=== PATIENT | female | born 1955 | race Caucasian/White ===

== ENCOUNTER 2018-01-25 17:10 | Emergency (ER) | payer OTHER ==
[2018-01-25 17:33] LABS: BASOPHILS % (AUTO) 0.7 %; EOSINOPHILS # (AUTO) 0.2 10^3/uL (0.0-0.7); EOSINOPHILS % (AUTO) 4.4 %; HGB - HEMOGLOBIN 13.5 g/dL (12.0-16.0); LYMPHOCYTES # (AUTO) 1.1 10^3/uL (1.5-3.5); LYMPHOCYTES % (AUTO) 22.5 %; MEAN CORPUSCULAR HEMOGLOBIN 30.6 pg (27.0-31.0); MEAN CORPUSCULAR HGB CONC 33.1 g/dL (32.0-36.0); MEAN CORPUSCULAR VOLUME 92.3 fL (81.0-99.0); MEAN PLATELET VOLUME 8.9 fL (7.9-10.8); MONOCYTES # (AUTO) 0.6 10^3/uL (0.0-1.0); MONOCYTES % (AUTO) 10.9 %; NEUTROPHILS # (AUTO) 3.1 10^3/uL (1.5-6.6); NEUTROPHILS % (AUTO) 61.5 %; PLT - PLATELET COUNT 172 10^3/uL (130-450); RED BLOOD COUNT 4.43 10^6/uL (4.20-5.40); RED CELL DISTRIBUTION WIDTH 13.1 % (12.0-15.0); WHITE BLOOD COUNT 5.1 x10^3/uL (4.8-10.8)
[2018-01-25 17:46] LABS: ALBUMIN 4.3 g/dL (3.2-5.5); ALBUMIN/GLOBULIN RATIO 1.2 (1.0-2.2); BILIRUBIN,TOTAL 0.5 mg/dL (0.2-1.0); CALCIUM 9.1 mg/dL (8.5-10.3); CREATININE 0.9 mg/dL (0.4-1.0); TOTAL PROTEIN 7.8 g/dL (6.7-8.2)
--- NOTE | 2018-01-25 18:29 | XRAY Report ---
Reason: soa/productive cough, chills. Procedure Date: 01/25/2018 Accession Number: [id number] / [id number] Procedure: XR - Chest 2 View X-Ray CPT Code: 73730 FULL RESULT: EXAM: CHEST RADIOGRAPHY EXAM DATE: 01/25/2018 05:42 PM. CLINICAL HISTORY: SOA/productive cough, chills. COMPARISON: 02/08/2015 1:19 PM. TECHNIQUE: 2 views. FINDINGS: Lungs/Pleura: No focal opacities evident. No pleural effusion. No pneumothorax. Normal volumes. Mediastinum: Heart and mediastinal contours are unremarkable. Other: None. IMPRESSION: Normal 2-view chest radiography. No active disease. RADIA
--- NOTE | 2018-01-25 21:28 | ED Physician Documentation ---
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 cough and soa saw PMD rx MDI and tessalon sx continue to worsen productive cough chest feels tight wheezing friend who is resp tech or nurse heard wheezing no travel no leg swelling Review of Systems Constitutional: denies: Fever, Chills Cardiac: reports: Chest pain / pressure (tightness) Respiratory: reports: Dyspnea, Cough GI: denies: Vomiting, Diarrhea Musculoskeletal: denies: Extremity swelling Endocrine: denies: Easy bruising / bleeding Immunocompromised: denies: Immunocompromised PD PAST MEDICAL HISTORY - Past Medical History Cardiovascular: Hypertension GI: Hiatal hernia, Hepatitis Psych: Depression, Anxiety - Past Surgical History 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 - Present Medications Home Medications: Ambulatory Orders Medication Instructions Recorded Confirmed DULoxetine [Cymbalta] 0 mg PO DAILY 07/18/13 02/08/15 Esomeprazole Magnesium [Nexium] 1 tab PO BID 07/18/13 02/08/15 Ursodiol 0 mg PO BID 07/18/13 02/08/15 hydroCHLOROthiazide 1 tab DAILY 03/14/14 02/08/15 [Hydrochlorothiazide] HYDROcod/ACETAM 5/325 [[place] 5/325] 1 ea PO Q6H PRN #10 tablet 02/08/15 Sucralfate [Carafate] 1 gm PO QID #1 bottle 02/08/15 Azithromycin [Zithromax] 250 mg PO DAILY #4 tablet 01/25/18 guaiFENesin/DEXTROMETHORPHAN 10 ml PO Q6H PRN #120 ml 01/25/18 [Robitussin Dm] predniSONE [Deltasone] 60 mg PO DAILY #5 tablet 01/25/18 - Allergies Allergies/Adverse Reactions: Allergies Allergy/AdvReac Type Severity Reaction Status Date / Time doxycycline [From Vibramycin] Allergy Emesis Verified 01/25/18 17:17 erythromycin base Allergy Emesis Verified 01/25/18 17:17 morphine Allergy Hallucinati Verified 07/18/13 12:35 ons - Social History Does the pt smoke?: No Smoking Status: Never smoker Does the pt drink ETOH?: Yes Does the pt have substance abuse?: No - Immunizations Immunizations are current?: Yes PD ED PE NORMAL - Vitals Vital signs reviewed: Yes - General General: Alert and oriented X 3 - Neck Neck: Supple, no meningeal sign - Cardiac Cardiac: RRR - Respiratory Respiratory: Other (donnell exp wheeze, right lower lung ronchi) - Abdomen Abdomen: Soft, Non tender - Extremities Extremities: Normal ROM s pain, No edema - Neuro Neuro: Alert and oriented X 3 Results - Vitals Vitals: Vital Signs - 24 hr 01/25/18 01/25/18 01/25/18 17:14 21:00 21:56 Temperature 36.9 C Heart Rate 95 85 85 Respiratory 18 20 22 Rate Blood Pressure 163/93 H 159/87 H O2 Saturation 98 98 01/25/18 23:05 Temperature Heart Rate 82 Respiratory 18 Rate Blood Pressure O2 Saturation Oxygen O2 Source Room air - EKG (time done) 1718 Rate: Rate (enter#) (61) Rhythm: NSR [place]: Normal Intervals: Normal DC QRS: Normal - Labs Labs: Laboratory Tests 01/25/18 01/25/18 01/25/18 17:29 17:29 17:29 WBC 5.1 RBC 4.43 Hgb 13.5 Hct 40.9 MCV 92.3 MCH 30.6 MCHC 33.1 RDW 13.1 Plt Count 172 MPV 8.9 Neut # (Auto) 3.1 Lymph # (Auto) 1.1 L [place] # (Auto) 0.6 Eos # (Auto) 0.2 Baso # (Auto) 0.0 Absolute Nucleated RBC 0.00 Nucleated RBC % 0.0 Sodium 137 Potassium 3.4 L Chloride 103 Carbon Dioxide 25 Anion Gap 9.0 BUN 21 H Creatinine 0.9 Estimated GFR (MDRD) 63 L Glucose 120 H Calcium 9.1 Total Bilirubin 0.5 AST 26 ALT 22 Alkaline Phosphatase 58 Troponin I < 0.04 Total Protein 7.8 Albumin 4.3 Globulin 3.5 Albumin/Globulin Ratio 1.2 Lipase 30 - Rads (name of study) CXR Radiology: See rad report (NACPD) PD MEDICAL DECISION MAKING - ED course ED course: chest tightness in setting of productive cough and wheezing - EKG and trop neg after weeks of sx - seems primarily resp not cardiac - do not feel further work up needed CXR neg but on exam focal ronchi c/w pna - will tc and wheezing now depsite MDI - add steroids and neb here before dc pt has take zmax before - her emycin allergy is NV inc wheezing and still tght after one neb but better after steroids started to work and a triple neb will dc Departure - Departure Disposition: 01 Home, Self Care Clinical Impression: Wheezing Pneumonia Qualifiers: Pneumonia type: due to unspecified organism Laterality: right Lung location: lower lobe of lung Qualified Code(s): J18.1 - Lobar pneumonia, unspecified organism Condition: Good Instructions: ED Pneumonia Adult Follow-Up: WENDY WALTERS MD [Primary Care Provider] - (for a recheck later this week) Prescriptions: Azithromycin [Zithromax] 250 mg PO DAILY #4 tablet guaiFENesin/DEXTROMETHORPHAN [Robitussin Dm] 10 ml PO Q6H PRN #120 ml PRN Reason: Cough predniSONE [Deltasone] 60 mg PO DAILY #5 tablet Comments: Your heart checked out fine Your exam does not suggest a blood clot in your lungs Your xray was fine but on exam it sounds like you have a right lower lung pneumonia so I have started antibiotics. Since you are still wheezing despite the inhaler prescribed by your PMD I have added steroids and a medication to loosen the mucous.
[2018-01-25] MEDS ORDERED: AZITHROMYCIN 250 MG TABLET PO STA (21:44)
[2018-01-25] MEDS ORDERED: DEXAMETHASONE 10 MG/ML VIAL PO STA (21:44)
[2018-01-25] MEDS ORDERED: ALBUTEROL NEB 2.5 MG/3 ML INH STA (21:44)
[2018-01-25] MEDS ORDERED: CHERRY SYRUP 10 ML UDC PO ONE (21:48)
[2018-01-25] MEDS ORDERED: LEVALBUTEROL 1.25 MG/3 ML NEB INH STA (22:46)
[2018-01-25 23:27] VITALS: BP 147/81
== END 2018-01-25 23:29 | disposition home or self-care (01) ==
LOC: ED 17:10
DX: J18.9 Pneumonia, unspecified organism (principal); Z88.1 Allergy status to other antibiotic agents; I10 Essential (primary) hypertension
CPT/HCPCS: 36415; 71046; 80053; 83690; 84484; 85025; 93005; 94640; 99283; 99284; A9270

== ENCOUNTER 2018-03-06 12:39 | Outpatient (CLI) | payer OTHER | END 2018-03-06 12:40 | disposition home or self-care (01) | LOC: RT 12:39 | PROVIDERS: ATTEND Family Medicine | DX: R05 Cough (principal); R06.02 Shortness of breath; R06.2 Wheezing | CPT/HCPCS: 94010 ==

== ENCOUNTER 2018-07-24 14:04 | Emergency (ER) | payer OTHER ==
[2018-07-24 14:18] VITALS: BP 141/70
[2018-07-24] MEDS ORDERED: DEXAMETHASONE 10 MG/ML VIAL PO STA (14:27)
[2018-07-24] MEDS ORDERED: CHERRY SYRUP 10 ML UDC PO ONE (14:27)
[2018-07-24] MEDS ORDERED: IBUPROFEN 800 MG TABLET PO STA (14:27)
--- NOTE | 2018-07-24 14:33 | ED Physician Documentation ---
History of Present Illness - Stated complaint Stated Complaint: SORE THROAT - Chief complaint Chief Complaint: Heent - History obtained from History obtained from: Patient - History of Present Illness Timing: How many days ago (2) Pain level max: 8 Pain level now: 8 - Additonal information Additional information: Patient is being treated for strep pharyngitis. She was seen at the [facility] yesterday and was given a "shot of penicillin" in her buttocks for the strep pharyngitis. She states continued pain today. Has not taken anything for pain. No vomiting. No fevers. Nothing makes it better. Worse with swallowing. Review of Systems Ten Systems: 10 systems reviewed and negative Constitutional: denies: Fever, Chills Nose: denies: Rhinorrhea / runny nose, Congestion Respiratory: denies: Wheezing GI: denies: Vomiting Skin: denies: Rash Musculoskeletal: denies: Neck pain, Back pain PD PAST MEDICAL HISTORY - Past Medical History Cardiovascular: Hypertension GI: Hiatal hernia, Hepatitis Psych: Depression, Anxiety - Past Surgical History Past Surgical History: Yes /[employer]: section - Present Medications Home Medications: Ambulatory Orders Medication Instructions Recorded Confirmed DULoxetine [Cymbalta] 0 mg PO DAILY 07/18/13 02/08/15 Esomeprazole Magnesium [Nexium] 1 tab PO BID 07/18/13 02/08/15 Ursodiol 0 mg PO BID 07/18/13 02/08/15 hydroCHLOROthiazide 1 tab DAILY 03/14/14 02/08/15 [Hydrochlorothiazide] HYDROcod/ACETAM 5/325 [[place] 5/325] 1 ea PO Q6H PRN #10 tablet 02/08/15 Sucralfate [Carafate] 1 gm PO QID #1 bottle 02/08/15 Azithromycin [Zithromax] 250 mg PO DAILY #4 tablet 01/25/18 guaiFENesin/DEXTROMETHORPHAN 10 ml PO Q6H PRN #120 ml 01/25/18 [Robitussin Dm] predniSONE [Deltasone] 60 mg PO DAILY #5 tablet 01/25/18 Hydrocodone/Acetaminophen 1 - 2 each PO Q6H PRN #7 tablet 07/24/18 [Hydrocodon-Acetaminophen 5-325] Ibuprofen [Motrin] 800 mg PO Q8H PRN #30 tablet 07/24/18 - Allergies Allergies/Adverse Reactions: Allergies Allergy/AdvReac Type Severity Reaction Status Date / Time doxycycline [From Vibramycin] Allergy Emesis Verified 01/25/18 17:17 erythromycin base Allergy Emesis Verified 01/25/18 17:17 morphine Allergy Hallucinati Verified 07/18/13 12:35 ons - Social History Does the pt smoke?: No Smoking Status: Never smoker Does the pt drink ETOH?: Yes Does the pt have substance abuse?: No - Immunizations Immunizations are current?: Yes PD ED PE NORMAL - Vitals Vital signs reviewed: Yes - General General: Alert and oriented X 3, No acute distress - HEENT HEENT: Moist mucous membranes, Other (Moderate posterior oropharyngeal erythema with tonsillar exudates. Uvula midline. Normal phonation. No trismus.) - Neck Neck: Supple, no meningeal sign, Other (Shotty anterior lymphadenopathy) - Cardiac Cardiac: RRR - Respiratory Respiratory: No respiratory distress, Clear bilaterally - Abdomen Abdomen: Soft, Non tender, Non distended - Derm Derm: Warm and dry, No rash - Neuro Neuro: Alert and oriented X 3 - Psych Psych: Normal mood, Normal affect Results - Vitals Vitals: Vital Signs - 24 hr 07/24/18 14:16 Temperature 36.5 C Heart Rate 74 Respiratory 18 Rate Blood Pressure 141/70 H O2 Saturation 99 Oxygen O2 Source Room air PD MEDICAL DECISION MAKING - ED course Complexity details: considered differential, d/w patient ED course: Patient with strep pharyngitis. Given a shot of penicillin yesterday. Given dexamethasone here and will place on pain medication for home. We will have her follow-up with her doctor for further care. No peritonsillar or retropharyngeal abscess at this time. Patient counseled regarding signs and symptoms for which I believe and urgent re-evaluation would be necessary. Patient with good understanding of and agreement to plan and is comfortable going home at this time This document was made in part using voice recognition software. While efforts are made to proofread this document, sound alike and grammatical errors may occur. Departure - Departure Disposition: 01 Home, Self Care Clinical Impression: Strep pharyngitis Condition: Good Instructions: ED Strep Pharyngitis Conf Follow-Up: your,doctor in 1 week [Other] Prescriptions: Hydrocodone/Acetaminophen [Hydrocodon-Acetaminophen 5-325] 1 - 2 each PO Q6H PRN #7 tablet PRN Reason: pain Ibuprofen [Motrin] 800 mg PO Q8H PRN #30 tablet PRN Reason: PAIN &/OR FEVER Comments: Return if you worsen. Drink plenty of fluids. Do not drink alcohol or drive while on narcotic pain medicine. Note that many narcotic pain relievers also contain tylenol/acetaminophen. Pl ease ensure that your total dose of acetaminophen from all sources does not exceed 3 grams (3000mg) per day. You may constipated on this medication, take a stool softener such as "Colace" twice a day while you are on it. Also recommend a xmgi-wxt-illvegn laxative such as senna or MiraLAX any day that you do not have a bowel movement. If you received narcotic pain medication in the emergency department, do not drive or operate machinery for the next 24 hours. Discharge Date/Time: 07/24/18 14:47
== END 2018-07-24 14:47 | disposition home or self-care (01) ==
LOC: ED 14:04
DX: J02.0 Streptococcal pharyngitis (principal); I10 Essential (primary) hypertension
CPT/HCPCS: 99283; A9270

== ENCOUNTER 2021-01-11 10:06 | Outpatient (CLI) | payer MEDICARE, OTHER ==
[2021-01-11 12:15] LABS: BASOPHILS % (AUTO) 1.1 %; EOSINOPHILS # (AUTO) 0.1 10^3/uL (0.0-0.7); EOSINOPHILS % (AUTO) 3.5 %; HCT - HEMATOCRIT 41.2 % (37.0-47.0); HGB - HEMOGLOBIN 13.2 g/dL (12.0-16.0); LYMPHOCYTES # (AUTO) 0.9 10^3/uL (1.5-3.5); LYMPHOCYTES % (AUTO) 24.4 %; MEAN CORPUSCULAR HEMOGLOBIN 29.5 pg (27.0-31.0); MEAN PLATELET VOLUME 11.3 fL (7.9-10.8); MONOCYTES # (AUTO) 0.4 10^3/uL (0.0-1.0); NEUTROPHILS # (AUTO) 2.2 10^3/uL (1.5-6.6); NEUTROPHILS % (AUTO) 60.7 %; PLT - PLATELET COUNT 171 10^3/uL (130-450); RED BLOOD COUNT 4.48 10^6/uL (4.20-5.40); RED CELL DISTRIBUTION WIDTH 13.3 % (12.0-15.0); WHITE BLOOD COUNT 3.7 x10^3/uL (4.8-10.8)
[2021-01-11 12:31] LABS: ALBUMIN 4.6 g/dL (3.2-5.5); ALBUMIN/GLOBULIN RATIO 1.5 (1.0-2.2); ALKALINE PHOSPHATASE 48 IU/L (42-121); ALT ALANINE AMINOTRANSFERASE 19 IU/L (10-60); AST ASPARTATE AMINOTRANSFERASE 22 IU/L (10-42); BILIRUBIN,TOTAL 0.8 mg/dL (0.2-1.0); BUN - BLOOD UREA NITROGEN 19 mg/dL (6-20); CALCIUM 9.9 mg/dL (8.5-10.3); CARBON DIOXIDE - CO2 26 mmol/L (21-32); CHLORIDE 102 mmol/L (101-111); CHOL/HDL RATIO 3.7 (<4.4); CHOLESTEROL 191 mg/dL; CREATININE 0.7 mg/dL (0.4-1.0); GFR - MDRD 84 (>89); GLUCOSE 111 mg/dL (70-100); HDL CHOLESTEROL 51 mg/dL; LDL CHOLESTEROL,CALCULATED 120 mg/dL; LDL/HDL RATIO 2.4 (<4.4); POTASSIUM 3.9 mmol/L (3.5-5.0); SODIUM 138 mmol/L (135-145); TOTAL PROTEIN 7.6 g/dL (6.7-8.2); TRIGLYCERIDES 102 mg/dL; VLDL CHOLESTEROL 20 mg/dL
== END 2021-01-11 10:07 | disposition home or self-care (01) ==
LOC: LAB.N 10:06
PROVIDERS: ATTEND Physician Assistant Medical
DX: I10 Essential (primary) hypertension (principal)
CPT/HCPCS: 36415; 80053; 80061; 83721; 85025

== ENCOUNTER 2021-04-05 03:37 | Emergency (ER) | payer MEDICARE ==
[2021-04-05] MEDS ORDERED: ONDANSETRON 4 MG/2 ML VIAL IVP STA (04:12)
[2021-04-05] MEDS ORDERED: ACETAMINOPHEN 1,000 MG/100 ML 100 ML IV ONE (04:13)
--- NOTE | 2021-04-05 04:18 | ED Physician Documentation ---
History of Present Illness - Stated complaint Stated Complaint: BLOODY STOOL, BACK/ABD PX - Chief complaint Chief Complaint: Abd Pain - History obtained from History obtained from: Patient - Additonal information Additional information: 65yF with pmh htn, ibs, last colonoscopy about 10 years ago (does not remember findings but thinks she may have had a polyp) p/w brbpr X 4 since 1700 last night. also with BL lower abdominal cramping pain. pain was cramping in quality, gradual onset, 9/10, constant, radiating to the back, a/w nausea but no vomiting. denies fever, hx rectal bleeding or hemorrhoids. Review of Systems Ten Systems: 10 systems reviewed and negative Constitutional: denies: Fever, Chills GI: reports: Abdominal Pain, Nausea, Bloody / black stool. 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 Home Medications: Ambulatory Orders Medication Instructions Recorded Confirmed DULoxetine [Cymbalta] 90 mg PO DAILY 07/18/13 04/05/21 hydroCHLOROthiazide 2 tab PO DAILY 03/14/14 04/05/21 [Hydrochlorothiazide] Sucralfate [Carafate] 1 gm PO QID #1 bottle 02/08/15 04/05/21 Famotidine [Pepcid AC] 10 mg PO DAILY 04/05/21 04/05/21 - Allergies Allergies/Adverse Reactions: Allergies Allergy/AdvReac Type Severity Reaction Status Date / Time doxycycline [From Vibramycin] Allergy Emesis Verified 04/05/21 03:43 erythromycin base Allergy Emesis Verified 04/05/21 03:43 morphine Allergy Hallucinati Verified 04/05/21 03:43 ons - Social History Does the pt smoke?: No Smoking Status: Never smoker Does the pt drink ETOH?: Yes Does the pt have substance abuse?: No - Immunizations Immunizations are current?: Yes PD ED PE NORMAL - Vitals Vital signs reviewed: Yes - General General: Alert and oriented X 3, No acute distress, Well developed/nourished - HEENT HEENT: Atraumatic, PERRL, EOMI - Neck Neck: Supple, no meningeal sign - Cardiac Cardiac: RRR - Respiratory Respiratory: No respiratory distress, Clear bilaterally - Abdomen Abdomen: Other (BL LQ discomfort to palpation) - Rectal Rectal: Other (IAN addison. brown mucus stool on BRYAN. no hemorrhoids) - Back Back: No CVA TTP - Derm Derm: Normal color, Warm and dry - Extremities Extremities: No deformity - Neuro Neuro: Alert and oriented X 3, No motor deficit, No sensory deficit - Psych Psych: Normal mood, Normal affect Results - Vitals Vitals: Vital Signs - 24 hr 04/05/21 04/05/21 03:39 06:00 Temperature 36.5 C Heart Rate 83 75 Respiratory 18 18 Rate Blood Pressure 182/79 H 150/68 H O2 Saturation 98 100 Oxygen O2 Source Room air - Labs Labs: Microbiology 04/05/21 04:20 Occult Blood - Final Stool Laboratory Tests 04/05/21 04/05/21 04/05/21 04:30 04:30 04:30 WBC 8.8 RBC 4.31 Hgb 12.9 Hct 38.7 MCV 89.8 MCH 29.9 MCHC 33.3 RDW 13.3 Plt Count 147 MPV 11.2 H Neut # (Auto) 7.0 H Lymph # (Auto) 0.9 L [place] # (Auto) 0.7 Eos # (Auto) 0.1 Baso # (Auto) 0.0 Absolute Nucleated RBC 0.00 Nucleated RBC % 0.0 PT 12.7 H INR 1.1 APTT 27.9 Sodium 136 Potassium 3.1 L Chloride 99 L Carbon Dioxide 25 Anion Gap 12.0 BUN 24 H Creatinine 0.8 Estimated GFR (MDRD) 72 L Glucose 126 H Calcium 9.9 Total Bilirubin 0.6 AST 23 ALT 20 Alkaline Phosphatase 52 Total Protein 7.9 Albumin 4.6 Globulin 3.3 Albumin/Globulin Ratio 1.4 Lipase 29 PD MEDICAL DECISION MAKING - ED course ED course: 65yF p/w brbpr. labs and fobt sent. symptomatic care provided. will reevaluate. discussed findings with patient. return precautions given. plan to f/u JUAN ANTONIO Santillan for referral to GI Departure - Departure Disposition: 01 Home, Self Care Clinical Impression: Rectal bleeding, Bilateral lower abdominal cramping Condition: Stable Instructions: ED Hematochezia Stable Comments: You were seen in the emergency department for evaluation of rectal bleeding. Your hemoglobin, a measure of your blood level, was normal. Your potassium was a little low so we gave you potassium. Your fecal sample was positive for blood. A CT was done in the emergency department as well that shows colitis (inflammation of the intestines), gallstones, and spots on your liver that have grown slightly from prior imaging. Please follow up with your primary in regards to these findings, to address your low potassium, and for possible referral to GI for colonoscopy and further evaluation. You may need to restart a potassium regimen. Please return to the ED if you have new or worsening symptoms or other concerns. Forms: Activity restrictions
[2021-04-05 04:35] LABS: BASOPHILS % (AUTO) 0.3 %; EOSINOPHILS # (AUTO) 0.1 10^3/uL (0.0-0.7); EOSINOPHILS % (AUTO) 0.9 %; HCT - HEMATOCRIT 38.7 % (37.0-47.0); HGB - HEMOGLOBIN 12.9 g/dL (12.0-16.0); LYMPHOCYTES # (AUTO) 0.9 10^3/uL (1.5-3.5); LYMPHOCYTES % (AUTO) 10.3 %; MEAN CORPUSCULAR HEMOGLOBIN 29.9 pg (27.0-31.0); MEAN CORPUSCULAR HGB CONC 33.3 g/dL (32.0-36.0); MEAN CORPUSCULAR VOLUME 89.8 fL (81.0-99.0); MEAN PLATELET VOLUME 11.2 fL (7.9-10.8); MONOCYTES # (AUTO) 0.7 10^3/uL (0.0-1.0); MONOCYTES % (AUTO) 8.4 %; NEUTROPHILS % (AUTO) 79.9 %; PLT - PLATELET COUNT 147 10^3/uL (130-450); RED BLOOD COUNT 4.31 10^6/uL (4.20-5.40); RED CELL DISTRIBUTION WIDTH 13.3 % (12.0-15.0); WHITE BLOOD COUNT 8.8 x10^3/uL (4.8-10.8)
[2021-04-05 04:49] LABS: INR 1.1 (0.8-1.2); PT - PROTHROMBIN TIME 12.7 secs (9.9-12.6)
[2021-04-05 04:52] LABS: ALBUMIN 4.6 g/dL (3.2-5.5); ALBUMIN/GLOBULIN RATIO 1.4 (1.0-2.2); BILIRUBIN,TOTAL 0.6 mg/dL (0.2-1.0); CALCIUM 9.9 mg/dL (8.5-10.3); CREATININE 0.8 mg/dL (0.4-1.0); POTASSIUM 3.1 mmol/L (3.5-5.0); TOTAL PROTEIN 7.9 g/dL (6.7-8.2)
[2021-04-05 04:56] LABS: PARTIAL THROMBOPLASTIN TIME 27.9 secs (24.9-33.3)
[2021-04-05] MEDS ORDERED: POTASSIUM CHLORIDE 20 MEQ/15 ML UDC PO STA (05:11)
[2021-04-05] MEDS ORDERED: METOCLOPRAMIDE 10 MG/2 ML VIAL IVP STA (05:20)
[2021-04-05] MEDS ORDERED: SODIUM CHLORIDE 0.9% 1,000 ML IV STA (05:20)
[2021-04-05] MEDS ORDERED: IOVERSOL 320 100 ML VIAL IVP ONE ×2 (05:42→06:04)
--- NOTE | 2021-04-05 07:07 | CT Report ---
PROCEDURE: Abdomen/Pelvis W INDICATIONS: BL LQ pain, rectal bleeding tonight CONTRAST: IV CONTRAST: Optiray 320 ml: 100 PO CONTRAST: *NO PO CONTRAST TECHNIQUE: After the administration of intravenous contrast, 5 mm thick sections acquired from the diaphragms to the symphysis. 5 mm thick coronal and sagittal reformats were acquired. For radiation dose reducti on, the following was used: automated exposure control, adjustment of mA and/or kV according to rk ent size. COMPARISON: 01/11. FINDINGS: Image quality: Excellent. ABDOMEN: Lung bases: Lung bases are clear. Heart size is normal. Solid organs: Liver and spleen are normal in size and enhancement. Multiple cysts noted in the liver which is slightly increased in size compared to prior CT scan. Gallbladder contains multiple gallsto kimmy. Biliary system is non dilated. Pancreas enhances normally. No adrenal nodules. Kidneys demon strate normal size and enhancement, without hydronephrosis. Peritoneum and bowel: Circumferential wall thickening involving the distal left colon and proximal si gmoid colon. Mild inflammatory changes noted in the distal left colon and the proximal sigmoid colon without fat. No free fluid or air. Appendix is normal. Nodes and vessels: No retroperitoneal or mesenteric adenopathy by size criteria. Aorta and inferior vena cava are normal in size. Miscellaneous: No ventral hernias. PELVIS: Genitourinary: Bladder wall thickness is normal. Uterus is absent. Miscellaneous: No inguinal hernias or adenopathy. Bones: No suspicious bony lesions. No vertebral body compression fractures. IMPRESSION: 1. Nonspecific colitis involving the distal left colon and proximal sigmoid colon. 2. Appendix is normal. 3. No dilated loops of bowel. 4. Cholelithiasis. Reviewed by: Geni Williamson MD, PhD on 04/05/2021 7:06 AM PST Approved by: Geni Williamson MD, PhD on 04/05/2021 7:06 AM PST Station ID: [id number]
[2021-04-05 07:11] VITALS: BP 170/84
== END 2021-04-05 07:10 | disposition home or self-care (01) ==
LOC: ED 03:37
DX: K92.1 Melena (principal); R10.30 Lower abdominal pain, unspecified; I10 Essential (primary) hypertension
CPT/HCPCS: 36415; 74177; 80053; 82272; 83690; 85025; 85610; 85730; 96365; 96375; 99284; A9270; J0131; J2765; Q9967

== ENCOUNTER 2021-04-08 12:39 | Outpatient (CLI) | payer MEDICARE ==
[2021-04-08 17:50] LABS: BASOPHILS % (AUTO) 0.5 %; EOSINOPHILS # (AUTO) 0.3 10^3/uL (0.0-0.7); EOSINOPHILS % (AUTO) 3.9 %; HGB - HEMOGLOBIN 14.9 g/dL (12.0-16.0); LYMPHOCYTES # (AUTO) 1.4 10^3/uL (1.5-3.5); LYMPHOCYTES % (AUTO) 16.4 %; MEAN CORPUSCULAR HEMOGLOBIN 30.4 pg (27.0-31.0); MEAN CORPUSCULAR HGB CONC 33.9 g/dL (32.0-36.0); MEAN CORPUSCULAR VOLUME 89.8 fL (81.0-99.0); MEAN PLATELET VOLUME 11.3 fL (7.9-10.8); MONOCYTES # (AUTO) 0.7 10^3/uL (0.0-1.0); MONOCYTES % (AUTO) 8.8 %; NEUTROPHILS # (AUTO) 5.9 10^3/uL (1.5-6.6); NEUTROPHILS % (AUTO) 70.2 %; PLT - PLATELET COUNT 235 10^3/uL (130-450); RED CELL DISTRIBUTION WIDTH 13.2 % (12.0-15.0); WHITE BLOOD COUNT 8.4 x10^3/uL (4.8-10.8)
[2021-04-08 18:13] LABS: ALBUMIN 4.9 g/dL (3.2-5.5); ALBUMIN/GLOBULIN RATIO 1.3 (1.0-2.2); BILIRUBIN,TOTAL 0.7 mg/dL (0.2-1.0); CALCIUM 10.3 mg/dL (8.5-10.3); CREATININE 0.9 mg/dL (0.4-1.0); POTASSIUM 3.5 mmol/L (3.5-5.0); TOTAL PROTEIN 8.6 g/dL (6.7-8.2)
== END 2021-04-08 12:40 | disposition home or self-care (01) ==
LOC: LAB.N 12:39
PROVIDERS: ATTEND Physician Assistant
DX: E87.6 Hypokalemia (principal); K62.5 Hemorrhage of anus and rectum
CPT/HCPCS: 36415; 80053; 85025

== ENCOUNTER 2021-04-25 08:00 | Outpatient (CLI) | payer MEDICARE ==
--- NOTE | 2021-04-25 12:47 | XRAY Report ---
PROCEDURE: Ribs w/PA Chest RT INDICATIONS: CHEST PAIN TECHNIQUE: 3 views of the right ribs were acquired, along with a single view chest. COMPARISON: Lung bases on CT 04/05/2021. CXR 01/25/2018. FINDINGS: Surgical changes and devices: None. Bones and chest wall: No fractures or dislocations. No suspicious bony lesions. Overlying soft tis sues appear unremarkable. Lungs and pleura: No pleural effusions or pneumothorax. Lungs appear clear. Mediastinum: Mediastinal contours appear unchanged. Heart size is normal. IMPRESSION: No displaced right-sided rib fracture. No acute cardiopulmonary abnormality. Reviewed by: Ervin Gray MD on 04/25/2021 11:46 AM SAM Approved by: Ervin Gray MD on 04/25/2021 11:46 AM SAM Station ID: [id number]
== END 2021-04-25 23:59 ==
LOC: DI.N 08:00
PROVIDERS: ATTEND Physician Assistant
DX: R07.9 Chest pain, unspecified (principal)

== ENCOUNTER 2021-07-09 08:53 | Outpatient (CLI) | payer MEDICARE ==
--- NOTE | 2021-07-09 10:27 | CARDIAC PROCEDURE NOTE ---
Stress Test Report Service Date: 07/09/21 Service Time: 09:00 Ordering Provider: Toña Santillan PA-C Indication for Test: Assess for an ischemic contribution to episodic chest discomfort. Significant Medical History: Carolyn is referred for evaluation of periodic "gripping" lower chest discomfort that she believes is related to hiatal hernia/GERD. She has had this discomfort off and on for a couple of years, but with increased frequency of episodes in recent months, in the setting of increased family psychosocial stress. Episodes occur randomly, possibly more frequently in the mornings, but NOT typically with exertion. The discomfort radiates upward from a subxyphoid location into her lower chest; typically she obtains at least partial relief with anti-acid medication. She continues to pursue sea kayaking on a regular basis, without a clear decrement in her toleration of this activity. Sometimes she experiences dyspnea with marked exertion, but she denies resting/positional dyspnea and extremity swelling. Her dose of HCTZ was doubled recently due to increased observed BPs during this period of increased stress; she took her full dose yesterday but ran out and did not have any to take this AM prior to her stress study. She also reports intermittent palpitations, with at least one episode associated with evidence of atrial fibrillation. She underwent a 30-day ambulatory monitor study several months back, during which she was told of intermittent "episodes" but with no recommendation for initiation of an anticoagulant. Cardiac Risk Factors: Positive for history of hypertension and significant family history of CAD in her father (CA at age 58) and brother (coronary stent at age 65); negative for hyperlipidemia, diabetes and history of tobacco smoking ever. Type of Stress Test: ETT with Myocardial Perfusion Imaging Procedure: -Exercise Treadmill Test- After signing informed consent, the patient underwent rest SPECT imaging and then performed treadmill exercise using a Jem protocol. The patient exercised for 6 minutes 31 seconds and achieved a peak heart rate of 138 (89 percent predicted maximum heart rate for age), and an estimated workload of 7.7 METS. The test was terminated due to shortness of breath. Resting heart rate: 70 Peak heart rate: 138 Normal response to exercise. Resting BP: 141/72 Peak BP: 199/81 Borderline resting BP with physiologic response of systolic BP and abnormal increase of diastolic BP to exercise. Rhythm during exercise: Sinus rhythm with intermittent PACs and PVCs in early exercise; from mid stage 2 to early stage 3 there was in increase in PVC frequency and episodes of bigeminal PVCs. Symptoms: She described NO chest discomfort. EKG at rest showed normal sinus rhythm, normal in all aspects. EKG at peak stress showed no ischemia by EKG criteria. In Recovery HR rapidly/normally returned to baseline, with slower decrease in BP (184/80 at 5:00). Nuclear imaging was performed at rest and with stress and interpretation will be reported separately. Billy Watson MD, was present throughout this treadmill stress study and supervised it in its entirety. Summary: 1) Exercise tolerance about average for age as evidenced by CHAZ of -5.5%. 2) Normal resting EKG. 4) Normal response of systolic BP to exercise, with abnormal diastolic BP increase. 5) No ischemic changes by EKG criteria were seen at peak stress. 6) Analysis of gated nuclear images reveals normal left ventricular size and globally hyperdynamic systolic function; SPECT analysis reveals apparent fixed defects in the anterior wall with imaging in the supine position, that nearly completely normalize in the prone position, most likely representing soft tissue artifact. See separate report for more detail. CONCLUSIONS: 1) Jem protocol ETT negative for symptoms and EKG evidence of ischemia. Increase in diastolic BP and PVCs with exercise could be related to patient's hypertension. 2) SPECT images most consistent with a low risk result, NOT indicative of prior infarct or inducible ischemia. 3) At the time of the study we discussed that if patient has been truly having intermittent atrial fibrillation she should be prescribed an anticoagulant due to CHADS2-Vasc score of 3; she will review this with Ms Santillan.
--- NOTE | 2021-07-09 14:07 | Nuclear Medicine Report ---
PROCEDURE: Rest and exercise myocardial perfusion SPECT with gated imaging and ejection fraction INDICATIONS: CHEST PAIN RADIOPHARMACEUTICAL: 14.2 mCi Tc-99m Myoview IV at rest and 34.3 mCi Tc-99m Myoview IV at peak exerc ise. [id number] was performed. TECHNIQUE: Radiopharmaceutical was injected at peak stress test, and also at rest. SPECT images wer e obtained. SPECT myocardial perfusion images were displayed in short axis, horizontal long axis, an d vertical long axis views. Gated images were reviewed using Auto[employer] software. COMPARISON: None available. FINDINGS: Raw data: There is good myocardial labeling by radiotracer. No significant motion artifacts. Lung- to-heart ratio is 0.30 (normal is less than 0.46 for tetrafosmin tracer). Left ventricle function: Gated images demonstrate normal left ventricle wall thickening. No segment al wall motion abnormality. No transient ischemic dilation; TID is 0.93 (normal less than 1.30). Th e left ventricle resting end-diastolic volume is 45 mL. Left ventricle stress ejection fraction is 9 6%; normal values are above 45%. Myocardial perfusion: There are fixed perfusion defects in the anterior wall. Apparent fixed perfusi on defects in the anterior wall demonstrate near complete normalization in the prone position and lik lizzeth represent breast attenuation artifact. IMPRESSION: 1. Probably normal myocardial perfusion study. Apparent fixed perfusion defects in the anterior wall demonstrate near complete normalization the prone position and likely represent soft tissue attenuati on artifact. Recommend cardiology consultation. 2. Normal left ventricular function with no segmental wall motion abnormalities and normal stress LVE F of 96%. PQRS ATTESTATIONS: Measure 322 - Is this imaging test primarily performed on a low-risk surgery patient for preoperative evaluation within 30 days preceding their low-risk non-cardiac surgery? Low-risk surgery is defined as cardiac or myocardial infarction less than 1%, including (but not limited to) endoscopic pr ocedures, superficial procedures, cataract surgery, and excisional breast surgery: Answer: No Measure 323 - Is this imaging test performed primarily for the monitoring of an asymptomatic patient who had percutaneous coronary intervention on the visit date or within 2 years of the visit date? An swer: No Measure 324 - Is this imaging test performed primarily for the initial detection and risk assessment on an asymptomatic, low coronary heart disease patient? Low CHD risk definition = clinicians should consider the maximum number of available patient factors used to estimate risk based on Carlotta (A TP III criteria), typically age, gender, diabetes, smoking status, and use of blood pressure medicati on, and integrate age appropriate estimates for missing elements, such as LDL or standard blood press ure. Answer: No Reviewed by: Geni Williamson MD, PhD on 07/09/2021 2:05 PM PDT Approved by: Geni Williamson MD, PhD on 07/09/2021 2:05 PM PDT Station ID: [id number]
== END 2021-07-09 08:54 | disposition home or self-care (01) ==
LOC: DI 08:53
PROVIDERS: ATTEND Physician Assistant Medical
DX: R07.9 Chest pain, unspecified (principal); I10 Essential (primary) hypertension; Z82.49 Family history of ischemic heart disease and other diseases of the circulatory system
CPT/HCPCS: 78452; 93017; A9500

== ENCOUNTER 2021-07-29 08:00 | Outpatient (CLI) | payer MEDICARE ==
--- NOTE | 2021-07-29 15:09 | XRAY Report ---
PROCEDURE: Chest 2 View X-Ray INDICATIONS: ACUTE COVID-19 TECHNIQUE: 2 view(s) of the chest. COMPARISON: 01/25/2018 FINDINGS: Surgical changes and devices: None. Lungs and pleura: No pleural effusions or pneumothorax. Lungs are clear. Mediastinum: Mediastinal contours are normal. Heart size is normal. Bones and chest wall: No suspicious bony abnormalities. Soft tissues appear unremarkable. IMPRESSION: No acute cardiopulmonary process demonstrated radiographically. Reviewed by: Kuldeep Ramos MD on 07/29/2021 3:07 PM PDT Approved by: Kuldeep Ramos MD on 07/29/2021 3:07 PM PDT Station ID: [id number]
== END 2021-07-29 23:59 | disposition home or self-care (01) ==
LOC: DI.N 08:00
PROVIDERS: ATTEND Nurse Practitioner
DX: U07.1 COVID-19 (principal)

== ENCOUNTER 2021-12-31 08:00 | Outpatient (CLI) | payer MEDICARE | END 2021-12-31 23:59 | disposition home or self-care (01) | LOC: LAB.WCP 08:00 | PROVIDERS: ATTEND Family Medicine | DX: N39.0 Urinary tract infection, site not specified (principal) | CPT/HCPCS: 81514; 87086; 87181 ==

== ENCOUNTER 2022-03-12 17:14 | Outpatient (CLI) | payer MEDICARE ==
--- NOTE | 2022-03-13 16:36 | XRAY Report ---
PROCEDURE: Foot 3 View LT INDICATIONS: HEEL PAIN,LEFT TECHNIQUE: 3 views of the foot were acquired. COMPARISON: None FINDINGS: Bones: No fractures or dislocations. No suspicious bony lesions. Joint space narrowing and periart icular osteophyte formation at the first metatarsophalangeal joint. Calcaneal spurring. Soft tissues: No tibiotalar joint effusion. Achilles tendon appears normal. IMPRESSION: 1. Calcaneal spurring which could indicate plantar fasciitis. This could be further assessed with MRI , if clinically indicated. 2. Osteoarthritis. 3. No acute fracture. No osseous lesion. If symptoms and/or clinical suspicion for pathology continue , further assessment with repeat plain films, or advanced imaging (e.g., CT, MRI, or bone scan) is re commended for further assessment. Reviewed by: Sushila Junior MD on 03/13/2022 4:35 PM PST Approved by: Sushila Junior MD on 03/13/2022 4:35 PM PST Station ID: [id number]
== END 2022-03-12 17:15 | disposition home or self-care (01) ==
LOC: DI 17:14
PROVIDERS: ATTEND Physician Assistant
DX: M77.32 Calcaneal spur, left foot (principal); M19.072 Primary osteoarthritis, left ankle and foot

== ENCOUNTER 2023-01-19 15:00 | Outpatient (CLI) | payer MEDICARE ==
--- NOTE | 2023-01-20 07:55 | XRAY Report ---
PROCEDURE: Finger(s) LT INDICATIONS: OTHER SPRAIN OF LEFT LITTLE FINGER TECHNIQUE: AP hand, 2 views of the fifth finger(s) acquired. COMPARISON: None. FINDINGS: Bones: There is a fracture at the base of the fifth proximal phalanx with mild displacement and angu lation. No suspicious bony lesions. Soft tissues: No suspicious soft tissue calcifications or masses. IMPRESSION: Fifth proximal phalangeal base fracture. Reviewed by: Jolie Li MD on 01/20/2023 7:54 AM PST Approved by: Jolie Li MD on 01/20/2023 7:54 AM [facility] Station ID: [id number]
== END 2023-01-19 15:15 | disposition home or self-care (01) ==
LOC: DI.N 15:00
PROVIDERS: ATTEND Family Medicine
DX: S62.617A Displaced fracture of proximal phalanx of left little finger, initial encounter for closed fracture (principal)

== ENCOUNTER 2023-01-19 16:51 | Emergency (ER) | payer MEDICARE ==
--- NOTE | 2023-01-19 17:10 | ED Physician Documentation ---
PD HPI UPPER EXT INJURY - Stated complaint Stated Complaint: L FINGER INJ - Chief complaint Chief Complaint: Trauma Ext - History obtained from History obtained from: Patient - History of Present Illness Location: Left, Finger (little) Type of injury: Fall (she states slipped and fell, striking left little finger and it bent in ulnar direction. Now bent laterally at base. Seen at [facility] and xray Dx proximal phalanx angulated fracture. Referred to ER for further treatment.) Timing - onset: How many hours ago (2), Today Timing - duration: Hours (2) Worsened by: Moving, Palpating Associated symptoms: Swelling, Discolored (brusiing). 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 - Present Medications Home Medications: Ambulatory Orders Medication Instructions Recorded Confirmed DULoxetine [Cymbalta] 90 mg PO DAILY 07/18/13 01/19/23 hydroCHLOROthiazide [Hydrodiuril] 12.5 mg PO DAILY 01/19/23 01/19/23 - Allergies Allergies/Adverse Reactions: Allergies Allergy/AdvReac Type Severity Reaction Status Date / Time doxycycline [From Vibramycin] Allergy Emesis Verified 04/05/21 03:43 erythromycin base Allergy Emesis Verified 04/05/21 03:43 morphine Allergy Hallucinati Verified 04/05/21 03:43 ons - Social History Does the pt smoke?: No Smoking Status: Never smoker Does the pt drink ETOH?: Yes Does the pt have substance abuse?: No - Immunizations Immunizations are current?: Yes PD ED PE NORMAL - Vitals Vital signs reviewed: Yes - General General: Alert and oriented X 3, No acute distress, Well developed/nourished - Derm Derm: Normal color, Warm and dry - Extremities Extremities: Other (left little finger with swelling and some bruising at base. Limited ROM. Able to engage flexiona nd extension at DIP so tendons intact. Good Cap refill and color. Tender at proximal proximal phalanx. ) - Neuro Neuro: No motor deficit, No sensory deficit Results - Vitals Vitals: Oxygen O2 Source Room air Procedures - Splint (location) - Minor ulnar gutteer Splint applied by: Tech Type of splint: Fiberglass, Ulnar gutter Other: Patient tolerated well, No complications, Neurovascular intact, Good alignment (clinically), Sling provided - Reduction Body part reduced: Left, Finger (proximal phalanx little finger) Fracture or dislocation: Fracture Anesthesia: Hematoma block (at finger fracture site with lidocaine) Reduction aftercare: Splint applied, Sling PD Medical Decision Making - ED course Complexity details: reviewed results (reviewed xray done at [facility] clinic. Did not need reduction film as clinically obvious to be straighter. ), considered differential (injured at base of proximal phalanx with angulation but minimal displacement. Needs just straightening and splint. Local anesth with lido 1% done with good effect. easy reduction and then I chose ulnar gutter splint given the location, rather than just bambi splint for now. ), d/w patient Departure - Departure Disposition: 01 Home, Self Care Clinical Impression: Finger fracture, left Qualifiers: Encounter type: initial encounter Finger: little finger Fracture type: closed Phalanx: proximal Fracture alignment: nondisplaced Qualified Code(s): S62.647A - Nondisplaced fracture of proximal phalanx of left little finger, initial encounter for closed fracture Condition: Stable Record reviewed to determine appropriate education?: Yes Instructions: ED Fx Finger Closed Follow-Up: Toña Santillan PA-C [Primary Care Provider] - [facility] [Provider Group] Comments: Keep the splint on and keep it clean and dry. We are of taped your finger to help hold it to the next 1 but also splinted the area since it is near the base of the finger to help with the alignment and hold it still. Elevate rest and ice often to help reduce swelling. You can use a sling to help support the whole arm so it is easier to carry around and not being etc. This will help with swelling as well. Anti-inflammatory such as ibuprofen or naproxen 2-3 times daily can help with pain and swelling. Tylenol 500 to 650 mg 4 times daily for the next several d ays to week to help as well. Follow-up with the orthopedic clinic in about a week, call for an appointment. They can reassess that at that point and might be able to go down to a less cumbersome splint. This will need splinting in some fashion for healing for about 4 to 6 weeks. Forms: PCP List Discharge Date/Time: 01/19/23 18:16
[2023-01-19 17:17] VITALS: O2SAT 98
[2023-01-19] MEDS ORDERED: ACETAMINOPHEN 325 MG TABLET PO STA (17:20)
[2023-01-19 18:22] VITALS: BP 173/9
== END 2023-01-19 18:16 | disposition home or self-care (01) ==
LOC: ED 16:51
DX: S62.617A Displaced fracture of proximal phalanx of left little finger, initial encounter for closed fracture (principal); W01.0XXA Fall on same level from slipping, tripping and stumbling without subsequent striking against object, initial encounter
CPT/HCPCS: 26755; 73140; 99282; 99283; A9270

== ENCOUNTER 2023-01-26 08:00 | Outpatient (CLI) | payer MEDICARE ==
--- NOTE | 2023-01-26 18:36 | XRAY Report ---
PROCEDURE: Finger(s) LT INDICATIONS: LEFT 5TH FINGER FRACTURE TECHNIQUE: AP hand, 2 views of the fourth and fifth finger(s) acquired. COMPARISON: None. FINDINGS: Bones: Again noted is a mildly angulated comminuted base of proximal phalanx of fifth finger fractur e.. No suspicious bony lesions. Angulation is slightly improved compared to the previous study. Soft tissues: No suspicious soft tissue calcifications or masses. IMPRESSION: Mildly angulated, comminuted base of proximal phalanx of fifth finger fracture, slightly improved in alignment compared to the previous study. Reviewed by: Ramón Workman MD on 01/26/2023 6:35 PM PST Approved by: Ramón Workman MD on 01/26/2023 6:35 PM PST Station ID: [id number]
== END 2023-01-26 23:59 | disposition home or self-care (01) ==
LOC: DI.WOS 08:00
PROVIDERS: ATTEND Orthopaedic Surgery
DX: S62.617D Displaced fracture of proximal phalanx of left little finger, subsequent encounter for fracture with routine healing (principal)

== ENCOUNTER 2023-02-11 11:48 | Outpatient (CLI) | payer MEDICARE ==
[2023-02-11 17:57] LABS: BASOPHILS % (AUTO) 0.7 %; EOSINOPHILS # (AUTO) 0.2 10^3/uL (0.0-0.7); EOSINOPHILS % (AUTO) 3.3 %; HCT - HEMATOCRIT 41.9 % (37.0-47.0); HGB - HEMOGLOBIN 13.2 g/dL (12.0-16.0); LYMPHOCYTES # (AUTO) 1.2 10^3/uL (1.5-3.5); LYMPHOCYTES % (AUTO) 25.7 %; MEAN CORPUSCULAR HEMOGLOBIN 29.1 pg (27.0-31.0); MEAN CORPUSCULAR HGB CONC 31.5 g/dL (32.0-36.0); MEAN CORPUSCULAR VOLUME 92.3 fL (81.0-99.0); MEAN PLATELET VOLUME 11.2 fL (7.9-10.8); MONOCYTES # (AUTO) 0.3 10^3/uL (0.0-1.0); MONOCYTES % (AUTO) 7.6 %; NEUTROPHILS # (AUTO) 2.8 10^3/uL (1.5-6.6); NEUTROPHILS % (AUTO) 62.5 %; PLT - PLATELET COUNT 197 10^3/uL (130-450); RED BLOOD COUNT 4.54 10^6/uL (4.20-5.40); RED CELL DISTRIBUTION WIDTH 13.3 % (12.0-15.0); WHITE BLOOD COUNT 4.5 x10^3/uL (4.8-10.8)
[2023-02-11 18:01] LABS: ALBUMIN 4.5 g/dL (3.2-5.5); ALBUMIN/GLOBULIN RATIO 1.7 (1.0-2.2); ALKALINE PHOSPHATASE 54 IU/L (42-121); ALT ALANINE AMINOTRANSFERASE 19 IU/L (10-60); AST ASPARTATE AMINOTRANSFERASE 18 IU/L (10-42); BILIRUBIN,TOTAL 0.5 mg/dL (0.2-1.0); BUN - BLOOD UREA NITROGEN 14 mg/dL (6-20); CALCIUM 9.6 mg/dL (8.5-10.3); CARBON DIOXIDE - CO2 26 mmol/L (21-32); CHLORIDE 105 mmol/L (101-111); CHOL/HDL RATIO 3.6 (<4.4); CHOLESTEROL 168 mg/dL; CREATININE 0.9 mg/dL (0.6-1.3); GFR - MDRD 62 (>89); GLUCOSE 134 mg/dL (74-104); HDL CHOLESTEROL 47 mg/dL; LDL CHOLESTEROL,CALCULATED 99 mg/dL; LDL/HDL RATIO 2.1 (<4.4); POTASSIUM 3.5 mmol/L (3.5-4.5); SODIUM 140 mmol/L (135-145); TOTAL PROTEIN 7.2 g/dL (6.4-8.9); TRIGLYCERIDES 108 mg/dL (48-352); VLDL CHOLESTEROL 22 mg/dL
== END 2023-02-11 11:49 | disposition home or self-care (01) ==
LOC: LAB.N 11:48
PROVIDERS: ATTEND Physician Assistant Medical
DX: I10 Essential (primary) hypertension (principal); R07.9 Chest pain, unspecified; K62.5 Hemorrhage of anus and rectum
CPT/HCPCS: 36415; 80053; 80061; 83721; 85025

== ENCOUNTER 2023-02-12 08:00 | Outpatient (CLI) | payer MEDICARE | END 2023-02-12 23:59 | disposition home or self-care (01) | LOC: LAB 08:00 | PROVIDERS: ATTEND Physician Assistant Medical | DX: N39.0 Urinary tract infection, site not specified (principal) | CPT/HCPCS: 87086; 87181 ==

== ENCOUNTER 2023-03-12 14:45 | Outpatient (CLI) | payer MEDICARE | END 2023-03-12 15:00 | disposition home or self-care (01) | LOC: LAB.N 14:45 | PROVIDERS: ATTEND Physician Assistant Medical | DX: R10.32 Left lower quadrant pain (principal) | CPT/HCPCS: 87086 ==

== ENCOUNTER 2023-03-16 10:57 | Outpatient (CLI) | payer MEDICARE ==
[2023-03-16] MEDS ORDERED: DIATRIZOATE MEGLU/DIATRIZO SOD 30 ML BOTTLE PO ONE (11:13)
[2023-03-16] MEDS ORDERED: iohexoL-300 100 ML VIAL ONE (11:13)
[2023-03-16 11:27] LABS: CREATININE 0.8 mg/dL (0.6-1.3)
[2023-03-16] MEDS: DIATRIZOATE MEGLU/DIATRIZO SOD 30 ML BOTTLE PO ONE (14:21)
[2023-03-16] MEDS: iohexoL-300 100 ML VIAL IVP ONE (14:21)
--- NOTE | 2023-03-16 16:49 | CT Report ---
PROCEDURE: Abdomen/Pelvis W INDICATIONS: LLQ ABDOMINAL PAIN CONTRAST: Omni 300 100ml TECHNIQUE: After the administration of intravenous contrast, a CT scan of the abdomen and pelvis was performed. Images were recorded and evaluated at appropriate window settings. Reformats: coronal and sagittal. F or radiation dose reduction, the following was used: automated exposure control, adjustment of mA and /or kV according to patient size. COMPARISON: 04/05/2021. FINDINGS: Image quality: Diagnostic. Lower chest: Unremarkable. Liver: No solid mass. Question very subtle findings of a potential AV fistula involving the posterior segment right hepatic artery and right portal vein. This is not definite. There is a dilated right h epatic artery segment extending to what appears to be a small aneurysm with potential connection to t he portal vein. The finding is not significantly changed from 2021. There is associated increased enh ancement of a portion of the posterior segment of the right lobe compared to the rest of the liver. A focal potential aneurysm associated with the presumed AV fistula on current image 24/2 and previous image /3 measures approximately 1.1 cm in diameter. Gallbladder and biliary tree: No radiopaque stones or wall thickening. No biliary dilation. Spleen: No splenomegaly. Pancreas: No pancreatic ductal dilation. Adrenals: No adrenal nodule. Kidneys and ureters: No hydronephrosis. No renal cystic lesion which requires follow up. No solid mas s. Stomach, bowel and peritoneum: No bowel distension. No pathologic free fluid. Mildly prominent enhanc ing wall of the sigmoid and left colon, submaximally distended. This is nonspecific. There is no evid ence of acute diverticulitis. Lymph nodes: No central or retroperitoneal adenopathy. Vessels: No infrarenal aortic aneurysm. PELVIS Reproductive organs: Uterus is surgically absent. No adnexal masses.. Bladder: No abnormal wall thickening, accounting for underdistention. Pelvic lymph nodes: No pelvic adenopathy by size criteria. Bones: No aggressive osseous abnormality. Other: No significant ventral or inguinal hernia. IMPRESSION: 1. Mildly prominent, enhancing wall of the sigmoid and left colon, but uncertain clinical significanc e. Consider possible mild distal colitis, of uncertain chronicity. 2. No other potentially acute findings identified. 3. Question possible long-standing incidental AV fistula between the posterior segment right hepatic artery and right portal vein. This is not definite. Reviewed by: Ramón Workman MD on 03/16/2023 4:47 PM PST Approved by: Ramón Workman MD on 03/16/2023 4:47 PM PST Station ID: [id number]
== END 2023-03-16 10:58 | disposition home or self-care (01) ==
LOC: LAB 10:57
PROVIDERS: ATTEND Physician Assistant Medical
DX: R10.32 Left lower quadrant pain (principal)
CPT/HCPCS: 36415; 74177; 82565; Q9963; Q9967

== ENCOUNTER 2023-03-28 13:00 | Emergency (ER) | payer MEDICARE ==
--- NOTE | 2023-03-28 13:25 | ED Physician Documentation ---
History of Present Illness - Stated complaint Stated Complaint: BACK PX,LT SD - Chief complaint Chief Complaint: Abd Pain - History obtained from History obtained from: Patient, EMS - History of Present Illness Timing: How many weeks ago (2 1/2) - Additonal information Additional information: 67-year-old Carolyn Ta has had a pain in her left lower abdomen for the past 2- 1/2 weeks. She reports normal bowel movements. She reports pain with defecation in the left lower quadrant. She reports a pain in the left lower quadrant that is persistent and worsening over the past 3 weeks. She was seen in the clinic a CT scan with oral and IV contrast was obtained demonstrating a patch of colitis in the left lower quadrant. She has an appointment to have colonoscopy done on April 21. She presents to the emergency department with worsening pain today and she is unable to tolerate it any longer. She reports that she has a prior incident of GI bleeding related to a period of constipation 2 years ago and she had resolution of this and did not follow-up for colonoscopy.She reports pain to her left flank as well pains are worse with movement and palpation. She is not currently having urinary symptoms. Review of Systems Constitutional: denies: Fever Eyes: denies: Decreased vision Ears: denies: Ear pain Nose: denies: Congestion Throat: denies: Sore throat Cardiac: denies: Chest pain / pressure, Palpitations Respiratory: denies: Dyspnea, Cough GI: reports: Abdominal Pain, Constipation. denies: Nausea, Vomiting, Diarrhea : denies: Dysuria, Frequency Skin: denies: Rash Musculoskeletal: reports: Back pain. 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 - Present Medications Home Medications: Ambulatory Orders Medication Instructions Recorded Confirmed DULoxetine [Cymbalta] 90 mg PO DAILY 07/18/13 03/28/23 hydroCHLOROthiazide [Hydrodiuril] 12.5 mg PO DAILY 01/19/23 03/28/23 Budesonide [Uceris] 2 gm RC BID #33 applic 03/28/23 HYDROcod/ACETAM 5/325 [[place] 5/325] 1 - 2 tablet PO Q6H PRN #14 tablet 03/28/23 metroNIDAZOLE [Flagyl] 375 mg PO BID #14 cap 03/28/23 - Allergies Allergies/Adverse Reactions: Allergies Allergy/AdvReac Type Severity Reaction Status Date / Time doxycycline [From Vibramycin] Allergy Emesis Verified 03/28/23 13:08 erythromycin base Allergy Emesis Verified 03/28/23 13:08 morphine Allergy Hallucinati Verified 03/28/23 13:08 ons - Social History Does the pt smoke?: No Smoking Status: Never smoker Does the pt drink ETOH?: Yes Does the pt have substance abuse?: No - Immunizations Immunizations are current?: Yes PD ED PE NORMAL - Vitals Vital signs reviewed: Yes (hypertensive ) - General General: Alert and oriented X 3, No acute distress, Well developed/nourished - HEENT HEENT: Atraumatic, PERRL, EOMI, Other (dry mucous membranes ) - Neck Neck: Supple, no meningeal sign, No bony TTP - Cardiac Cardiac: RRR, No murmur - Respiratory Respiratory: No respiratory distress, Clear bilaterally - Abdomen Abdomen: Normal bowel sounds, Soft, Non distended, No organomegaly, Other (specific area of tenderness to the LLQ about 3cm in size. surrounding tissues not tender. ) - Back Back: No spinal TTP, Other (There is specific tenderness to the L flank medially in the paraspinous muscles of the back at L2. sonographic palpation of the left kidney does not demostate tenderness. hydro is not appreciated ) - Derm Derm: Normal color, Warm and dry, No rash - Extremities Extremities: No deformity, No edema - Neuro Neuro: Alert and oriented X 3, lead relay tester 2-12 intact, No motor deficit, No sensory d eficit, Normal speech Eye Opening: Spontaneous Motor: Obeys Commands Verbal: Oriented GCS Score: 15 - Psych Psych: Normal mood, Normal affect Results - Vitals Vitals: Vital Signs - 24 hr 03/28/23 03/28/23 13:03 14:59 Temperature 36.1 C L 36.3 C L Heart Rate 99 74 Respiratory 14 18 Rate Blood Pressure 146/84 H 142/77 H O2 Saturation 99 100 Oxygen O2 Source Room air - Labs Labs: Laboratory Tests 03/28/23 03/28/23 03/28/23 13:28 13:28 13:38 WBC 5.2 RBC 4.67 Hgb 13.9 Hct 42.2 MCV 90.4 MCH 29.8 MCHC 32.9 RDW 13.2 Plt Count 192 MPV 11.2 H Neut # (Auto) 3.7 Lymph # (Auto) 0.9 L [place] # (Auto) 0.5 Eos # (Auto) 0.1 Baso # (Auto) 0.0 Absolute Nucleated RBC 0.00 Nucleated RBC % 0.0 Sodium 137 Potassium 4.2 Chloride 104 Carbon Dioxide 23 Anion Gap 10.0 BUN 20 Creatinine 1.3 Estimated GFR (MDRD) 41 L Glucose 126 H Calcium 10.2 Total Bilirubin 0.6 AST 42 ALT 41 Alkaline Phosphatase 45 Total Protein 7.5 Albumin 4.7 Globulin 2.8 Albumin/Globulin Ratio 1.7 Lipase 28 Urine Color YELLOW Urine Clarity CLEAR Urine pH 5.5 Ur Specific [place] 1.015 Urine Protein NEGATIVE Urine Glucose (UA) NEGATIVE Urine Ketones NEGATIVE Urine Occult Blood NEGATIVE Urine Nitrite NEGATIVE Urine Bilirubin NEGATIVE Urine Urobilinogen 0.2 (NORMAL) Ur Leukocyte Esterase NEGATIVE Ur Microscopic Review NOT INDICATED Urine Culture Comments NOT INDICATED - Rads (name of study) CT ab pel with IV contrast Relevant Findings:: Prelim report reviewed (Impression: Focal sigmoid colitis can be seen. No findings of perforation or abscess can be seen. Abnormal right posterior liver, with abnormally prominent hepatic arteries, as before.), EMP independent interpretation of test Procedures - Bedside sono Bedside sono by EMP: Sonographic palpation of the left kidney does not demonstrate any specific tenderness to the kidney itself. There is no evidence of hydronephrosis. Sonographically the tenderness is over the paraspinous muscles in the back at about level L2 - IVC sono (time) 1323 Bedside IVC sono: IVC measures (cm) (0.89), IVC collapsed c insp (cm) (complete), Dehydration (est 2 liter deficit) PD Medical Decision Making - ED course Complexity details: reviewed old records, reviewed results, re-evaluated patient, considered differential, d/w patient, d/w family ED course: 67-year-old Carolyn Ta has developed some pain in her left lower quadrant of her abdomen and in her left flank. She is having worse pain this morning than usual and she has had this pain for almost 3 weeks. She states that today the pain is worse with respiration and with bowel movement. She denies any diarrhea or loose stool states that she has been taking some Metamucil and has firm stool and does not have to do much paperwork.She is been diagnosed with a potential colitis on the CT scan done on March 16 and she has an appointment to see the surgeon for colonoscopy. She does not seem to have symptoms of colitis. (stool devine).Today her CT scan again demonstrates a focal area of colitis and anatomically this is directly over the area of her tenderness. I am inclined to treat this colitis as she does not have follow-up for colonoscopy for about 1 month.We did attempt to control her pain with Toradol Departure - Departure Disposition: Home, Self Care Clinical Impression: Colitis, Dehydration Abdominal pain Qualifiers: Abdominal location: left lower quadrant Qualified Code(s): R10.32 - Left lower quadrant pain Condition: Stable Instructions: ED Dehydration, ED IBS, Colitis Ulcerative Follow-Up: Toña Santillan PA-C [Provider Admit Priv/Credential] - Prescriptions: metroNIDAZOLE [Flagyl] 375 mg PO BID #14 cap HYDROcod/ACETAM 5/325 [[place] 5/325] 1 - 2 tablet PO Q6H PRN #14 tablet PRN Reason: Pain Budesonide [Uceris] 2 gm RC BID #33 applic Comments: Carolyn, today it looks like you have a persistent area of focal colitis in the sigmoid colon. This usually represents an inflammation and sometimes infection involving the wall of the colon. Today we are using empiric treatment for this with an antibiotic and a steroid. In addition I have prescribed some pain medication for you to use. All of these medications have been e-scribed to [facility] in [place]. We are expecting to have some improvement in your symptoms over the next 2 to 3 days. Follow-up with Evelina Santillan and with your colonoscopy as planned.
[2023-03-28] MEDS: SODIUM CHLORIDE 0.9% 1,000 ML IV STA (13:33)
[2023-03-28 13:43] LABS: BASOPHILS % (AUTO) 0.4 %; EOSINOPHILS # (AUTO) 0.1 10^3/uL (0.0-0.7); EOSINOPHILS % (AUTO) 1.3 %; HCT - HEMATOCRIT 42.2 % (37.0-47.0); HGB - HEMOGLOBIN 13.9 g/dL (12.0-16.0); LYMPHOCYTES # (AUTO) 0.9 10^3/uL (1.5-3.5); LYMPHOCYTES % (AUTO) 17.2 %; MEAN CORPUSCULAR HEMOGLOBIN 29.8 pg (27.0-31.0); MEAN CORPUSCULAR HGB CONC 32.9 g/dL (32.0-36.0); MEAN CORPUSCULAR VOLUME 90.4 fL (81.0-99.0); MEAN PLATELET VOLUME 11.2 fL (7.9-10.8); MONOCYTES # (AUTO) 0.5 10^3/uL (0.0-1.0); MONOCYTES % (AUTO) 10.3 %; NEUTROPHILS # (AUTO) 3.7 10^3/uL (1.5-6.6); NEUTROPHILS % (AUTO) 70.6 %; PLT - PLATELET COUNT 192 10^3/uL (130-450); RED BLOOD COUNT 4.67 10^6/uL (4.20-5.40); RED CELL DISTRIBUTION WIDTH 13.2 % (12.0-15.0); WHITE BLOOD COUNT 5.2 x10^3/uL (4.8-10.8)
[2023-03-28 13:44] LABS: BILIRUBIN,URINE NEGATIVE (NEGATIVE); GLUCOSE, URINE (UA) NEGATIVE (NEGATIVE); KETONES,URINE (UA) NEGATIVE (NEGATIVE); LEUKOCYTE ESTERASE, URINE NEGATIVE (NEGATIVE); NITRITE,URINE NEGATIVE (NEGATIVE); OCCULT BLOOD,URINE NEGATIVE (NEGATIVE); PH,URINE 5.5 PH (5.0-7.5); PROTEIN,URINE NEGATIVE (NEGATIVE); UROBILINOGEN,URINE 0.2 (NORMAL) E.U./dL (NORMAL)
[2023-03-28 14:04] LABS: ALBUMIN 4.7 g/dL (3.2-5.5); ALBUMIN/GLOBULIN RATIO 1.7 (1.0-2.2); BILIRUBIN,TOTAL 0.6 mg/dL (0.2-1.0); CALCIUM 10.2 mg/dL (8.5-10.3); CREATININE 1.3 mg/dL (0.6-1.3); POTASSIUM 4.2 mmol/L (3.5-4.5); TOTAL PROTEIN 7.5 g/dL (6.4-8.9)
[2023-03-28] MEDS ORDERED: iohexoL-300 100 ML VIAL ONE (14:06)
[2023-03-28 14:16] LABS: CLARITY,URINE CLEAR (CLEAR)
[2023-03-28] MEDS: iohexoL-300 100 ML VIAL IVP ONE (14:29)
[2023-03-28] MEDS: KETOROLAC 30 MG/ML VIAL IVP STA (14:56)
[2023-03-28 15:03] VITALS: O2SAT 100
--- NOTE | 2023-03-28 15:06 | CT Report ---
PROCEDURE: Abdomen/Pelvis W INDICATIONS: worsening LLQ pain specific area CONTRAST: 100ml omni 300 TECHNIQUE: After the administration of intravenous contrast, a CT scan of the abdomen and pelvis was performed. Images were recorded and evaluated at appropriate window settings. Reformats: coronal and sagittal. F or radiation dose reduction, the following was used: automated exposure control, adjustment of mA and /or kV according to patient size. COMPARISON: 03/16/2023 FINDINGS: Image quality: Diagnostic. Lower chest: Unremarkable. Liver: Abnormally prominent arteries can be seen within the right posterior liver, with regional hype renhancement, which is stable compared to the prior examination. A cyst can be seen involving the lef t lateral lobe of the liver. Gallbladder and biliary tree: Layering gallstones are seen. Spleen: No splenomegaly. Pancreas: No pancreatic ductal dilation. Adrenals: No adrenal nodule. Kidneys and ureters: No hydronephrosis. No renal cystic lesion which requires follow up. No solid mas s. Stomach, bowel and peritoneum: In this patient with this given history, scrutiny is given to the sig moid colon. There is moderate wall thickening with hyperenhancement seen involving the sigmoid colon. The more proximal colon is within normal limits. No dilated loops of small bowel are seen. A normal appendix is seen. No free air or significant free fluid can be seen. No peritoneal abscess is seen. Lymph nodes: No central or retroperitoneal adenopathy. Vessels: No infrarenal aortic aneurysm. PELVIS Reproductive organs: This patient is status post hysterectomy. No adnexal masses can be seen. Bladder: No abnormal wall thickening, accounting for underdistention. Pelvic lymph nodes: No pelvic adenopathy by size criteria. Bones: No aggressive osseous abnormality. Other: No significant ventral or inguinal hernia. IMPRESSION: Focal sigmoid colitis can be seen. No findings of perforation or abscess can be seen. Abnormal right posterior liver, with abnormally prominent hepatic arteries, as before. Additional findings: Layering gallstones Normal appendix Hysterectomy Reviewed by: Justin Azevedo MD on 03/28/2023 2:05 PM [facility] Approved by: Justin Azevedo MD on 03/28/2023 2:05 PM [facility] Station ID: [id number]
[2023-03-28 15:56] VITALS: BP 136/72
== END 2023-03-28 15:54 | disposition home or self-care (01) ==
LOC: ED 13:00
DX: K52.9 Noninfective gastroenteritis and colitis, unspecified (principal); E86.0 Dehydration
CPT/HCPCS: 36415; 74177; 80053; 81003; 83690; 85025; 96361; 96374; 99284; Q9967; 81001; 87086

== ENCOUNTER 2023-04-01 10:42 | Outpatient (CLI) | payer MEDICARE ==
--- NOTE | 2023-04-01 13:26 | DEXA Report ---
PROCEDURE: Dexa Spine and/or Hip INDICATIONS: POST MENOAPUSAL TECHNIQUE: Dual energy x-ray absorptiometry (DXA) was performed on a [employer] System. Regions measur ed are the AP Spine, femoral neck, and if needed forearm. COMPARISON: None FINDINGS: Lumbar Spine: Bone Mineral Density: 0.924 g/cm/cm,T score: -2.1. Left Femoral Neck: Bone Mineral Density: 0.820 g/cm/cm, T score: -1.6. Left Hip: Bone Mineral Density: 0.879 g/cm/cm,T score: -1.0. (T score greater or equal to -1.0: NORMAL) (T score from -1.1 to -2.4: OSTEOPENIA) (T score less than or equal to -2.5 to: OSTEOPOROSIS) Impression: By WHO criteria, this patient has moderate to severe osteopenia lumbar spine, mild to moderate in the left hip and femoral neck. Patients with diagnosis of osteoporosis or osteopenia should have regular bone mineral density assess ment. For those eligible for Medicare, routine testing is allowed once every 2 years. Testing frequ ency can be increased for patients who have rapidly progressing disease or for those who are receivin g medical therapy to restore bone mass. Reviewed by: Tracee Rajput MD on 04/01/2023 1:25 PM PST Approved by: Tracee Rajput MD on 04/01/2023 1:25 PM PST Station ID: [id number]
== END 2023-04-01 10:43 | disposition home or self-care (01) ==
LOC: DI 10:42
PROVIDERS: ATTEND Physician Assistant Medical
DX: Z78.0 Asymptomatic menopausal state (principal); M85.89 Other specified disorders of bone density and structure, multiple sites

== ENCOUNTER 2023-04-22 07:06 | Day surgery (SDC) | payer MEDICARE ==
[2023-04-22] MEDS: LACTATED RINGERS 1,000 ML IV ONE (07:43)
--- NOTE | 2023-04-22 08:22 | ANESTHESIA ---
Pre-Anesthesia VS, & Labs - Diagnosis screening - Procedure colonoscopy Vital Signs: Temp Pulse Resp BP Pulse Ox O2 Flow Rate 36.5 C 90 22 174/95 H 98 04/22/23 07:35 04/22/23 07:35 04/22/23 07:35 04/22/23 07:35 04/22/23 07:35 Height: 5 ft Weight (kg): 72 kg Body Mass Index: 30.9 BMI Classification: Obese - NPO >8 hours - Is Patient ?: No Home Medications and Allergies DULoxetine [Cymbalta] 90 mg PO DAILY 07/18/13 hydroCHLOROthiazide [Hydrodiuril] 12.5 mg PO DAILY 01/19/23 Allergies/Adverse Reactions: Allergies Allergy/AdvReac Type Severity Reaction Status Date / Time doxycycline [From Vibramycin] Allergy Emesis Verified 03/28/23 13:08 erythromycin base Allergy Emesis Verified 03/28/23 13:08 morphine Allergy Hallucinati Verified 03/28/23 13:08 ons Latex, Natural Rubber AdvReac Rash Verified 04/22/23 07:34 Anes History & Medical History - Anesthetic History Anesthesia Complications: reports: No previous complications Family history of Anesthesia Complications: Denies Family history of Malignant Hyperthermia: Denies - Medical History Cardiovascular: reports: Hypertension Pulmonary: reports: COPD Gastrointestinal: reports: Hiatal hernia, Hepatitis, Other Urinary: reports: None Musculoskeletal: reports: None Endocrine/Autoimmune: reports: None Blood Disorders: reports: None Skin: reports: None Smoking Status: Never smoker Psychosocial: reports: No issues indicated History of Cancer?: No - Surgical History General: reports: Colonoscopy Gynecologic: reports: section, Hysterectomy Exam General: Alert, Oriented x3, Cooperative Dental: WNL Mouth Openin Fingerbreadth Neck Mobility: Normal Mallampati classification: II Thyromental Distance: 4-6 cm Respiratory: Lungs clear Cardiovascular: Regular rate Plan Anesthesia Type: General, Total IV Consent for Procedure(s) Verified and Reviewed: Yes Code Status: Attempt Resuscitation ASA classification: 2-Mild systemic disease Is this case an emergency?: No
[2023-04-22] MEDS ORDERED: PROPOFOL 500 MG/50 ML 500 MG/50 ML VIAL ONE (09:48)
[2023-04-22] MEDS: LACTATED RINGERS 300 ML IV ONE (10:14)
[2023-04-22 10:43] VITALS: BP 136/71; O2SAT 100
== END 2023-04-22 07:07 | disposition home or self-care (01) ==
LOC: SDS 07:06
PROVIDERS: ATTEND Surgery
PROC: 0DBM8ZX Excision of Descending Colon, Via Natural or Artificial Opening Endoscopic, Diagnostic (ICD-10-PCS; 2023-04-22)
PROC: 0DBK8ZX Excision of Ascending Colon, Via Natural or Artificial Opening Endoscopic, Diagnostic (ICD-10-PCS; principal; 2023-04-22 08:45)
DX: D12.2 Benign neoplasm of ascending colon (principal); K63.5 Polyp of colon; R10.32 Left lower quadrant pain; R19.4 Change in bowel habit; I10 Essential (primary) hypertension; F41.9 Anxiety disorder, unspecified; J44.9 Chronic obstructive pulmonary disease, unspecified
CPT/HCPCS: 45380; 45385; J7120

== ENCOUNTER 2023-06-10 13:32 | Outpatient (CLI) | payer OTHER, MEDICARE | END 2023-06-10 13:33 | disposition critical access hospital (66) | LOC: EMS 13:32 | DX: S01.01XA Laceration without foreign body of scalp, initial encounter (principal); S09.90XA Unspecified injury of head, initial encounter; M25.531 Pain in right wrist; R51.9 Headache, unspecified; W18.31XA Fall on same level due to stepping on an object, initial encounter; Y92.219 Unspecified school as the place of occurrence of the external cause | CPT/HCPCS: A0425; A0429 ==

== ENCOUNTER 2023-06-10 13:59 | Emergency (ER) | payer MEDICARE, OTHER ==
--- NOTE | 2023-06-10 14:03 | ED Physician Documentation ---
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 Laceration to forehead/scalp with some bleeding, dazed briefly but no LOC. Had geeneral headache and some upper neck pain. No chest nor abd pain. No anitcoag.) Timing - onset: Today Injury(ies) location: Head, Neck, Right Upper Extremity. No: Chest, Abdomen Pain level max: 5 Pain level now: 5 (at wrist) Associated symptoms: Neck pain. No: LOC, AMS, Weakness, Paresthesias Worsens with: Movement, Palpation Contributing factors: No: Anticoagulated, Intoxicated Similar symptoms before: Has not had sx before Review of Systems Constitutional: denies: Fever, Chills Nose: denies: Rhinorrhea / runny nose, Congestion Throat: denies: Sore throat Cardiac: denies: Chest pain / pressure Respiratory: denies: Cough GI: denies: Abdominal Pain, Nausea, Vomiting Skin: reports: Laceration (s) (small frontal scalp). 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: section, Hysterectomy - Present Medications Home Medications: Ambulatory Orders Medication Instructions Recorded Confirmed DULoxetine [Cymbalta] 90 mg PO DAILY 07/18/13 06/10/23 hydroCHLOROthiazide [Hydrodiuril] 12.5 mg PO DAILY 01/19/23 06/10/23 Meloxicam [Mobic] 7.5 mg PO BID 10 Days #20 tablet 06/10/23 - Allergies Allergies/Adverse Reactions: Allergies Allergy/AdvReac Type Severity Reaction Status Date / Time doxycycline [From Vibramycin] Allergy Emesis Verified 06/10/23 14:14 erythromycin base Allergy Emesis Verified 06/10/23 14:14 morphine Allergy Hallucinati Verified 06/10/23 14:14 ons Latex, Natural Rubber AdvReac Rash Verified 06/10/23 14:14 - Social History Does the pt smoke?: No Smoking Status: Never smoker Does the pt drink ETOH?: Yes Does the pt have substance abuse?: No - Immunizations Immunizations are current?: Yes PD ED PE NORMAL - Vitals Vital signs reviewed: Yes - General General: Alert and oriented X 3, No acute distress, Well developed/nourished - HEENT HEENT: PERRL, EOMI, Other (frontal scalp with small less than 1 cm stellate laceration with some bruising, c/w impact split. No bleeding nor FB noted. Does not need suturing. ) - Neck Neck: Supple, no meningeal sign, No adenopathy, Other (some tender upper neck to right side more. She has spontaneous ROM of the neck, without neuro symtpoms nor severe pain. Not guarding ROM. Has pill roll loosely around neck and taped in front. ) - Cardiac Cardiac: RRR, No murmur - Respiratory Respiratory: No respiratory distress, Clear bilaterally, Other (no chestwall tenderness. ) - Abdomen Abdomen: Soft, Non tender - Back Back: No spinal TTP - Derm Derm: Normal color, Warm and dry - Extremities Extremities: Other (lower extremities with godd ROM without pain and no tenderenss. 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 Right wrist with tenderness dorsal aspect. No obvious deformity. Ring on finger removed. Painful ROM but has good finger movement, sensation, cap refill. Good wrist pulses. ) - Neuro Neuro: Alert and oriented X 3, No motor deficit, No sensory deficit, Normal speech Eye Opening: Spontaneous Motor: Obeys Commands Verbal: Oriented GCS Score: 15 Results - Vitals Vitals: Vital Signs - 24 hr 06/10/23 06/10/23 06/10/23 14:07 14:13 17:16 Temperature 37.1 C Heart Rate 87 78 77 Respiratory 20 16 20 Rate Blood Pressure 169/85 H 155/88 H 173/88 H O2 Saturation 99 100 99 06/10/23 17:47 Temperature 36.5 C Heart Rate 72 Respiratory 16 Rate Blood Pressure 159/82 H O2 Saturation 97 Oxygen O2 Source Room air - Rads (name of study) head CT Relevant Findings:: Prelim report reviewed (no ICH nor fractures), EMP independent interpretation of test cervical CT Relevant Findings:: Prelim report reviewed (no fractures) right wrist xray Relevant Findings:: Prelim report reviewed, EMP independent interpretation of test (distal radius fracture ulnar side without displaceemnt. No notable disruption of joint articular plane. ) Procedures - Splint (location) - Minor right wrist Splint applied by: Physician Type of splint: Fiberglass (well padded), Sugar tong Other: Patient tolerated well, No complications, Neurovascular intact (recheck after fully hardedened, and patient states is comfortable. Has good color of fingers, movement and cap refill.), Sling provided PD Medical Decision Making - ED course Complexity details: reviewed results, considered differential (fall at work and frontal scalp small lac that does not need suturing. Headahc and neck pain and can not clear patient via Rowan Head RUles. CTs obtained without acute findings. Wrist is clinically suspicous for fracture. Xray obtained. ), d/w patient ED course: The patient says opioid meds make her very nauseated and sick and does not want Rx. We discusssed use of Tylenol regularly and some NSAIDS in addition due to her description of sensitive stomach. As such, Id di opt for Meloxicam over the Ibuprofen she has at home in OTC doses. Her sister was concerned about pain contraol and Id di discuss studies that show NSAIDs with Tylenol can be as effective as opioids with much less side effects. L&I form filled out. Departure - Departure Disposition: 01 Home, Self Care Clinical Impression: Fall from slip, trip, or stumble, Scalp laceration, Cervical strain, Distal radius fracture, right, Head contusion, Thyroid nodule Condition: Stable Record reviewed to determine appropriate education?: Yes Instructions: ED Fx Wrist General Follow-Up: Toña Santillan PA-C [Primary Care Provider] - Devante Enrique MD [Provider Admit Priv/Credential] - Prescriptions: Meloxicam [Mobic] 7.5 mg PO BID 10 Days #20 tablet Comments: You do have a nondisplaced fracture at the end of the radius/wrist. We have splinted it to help with immobility and less motion at that bone both at the wrist motion and with elbow motion. This is a splint intended to be kept in place until follow-up. At that point the orthopedist will mauricio-ray it and assess the maintenance of position and discuss options. Most likely a true cast. Regarding your upcoming trip on a cruise ship, you can discuss with the orthopedist about more waterproof type padding for the cast or if a Velcro type splint would be adequate. Sling to help elevate the wrist and shoulder. This is from when you are up and around. Otherwise prop the wrist on pillow for such to provide some elevation to reduce swelling. For pain, a combination of quite regular use of Tylenol 500 to 650 mg 4 times daily through the day for the next 7 to 10 days. To that you could use occasional anti-inflammatories. In order to reduce effect on the stomach, I am prescribing 1 that is a called a Oneil 2 inhibitor so it is less affecting on the stomach lining. Still if you find that is upsetting on your stomach, then just discontinue it. I understand you get nauseous with opiate type pain medicines and on most studies for fractures like this, people use of very small amounts of opiates at all and typically do well with a combination of anti-inflammatories and Tylenol so you are not really losing out. Call the orthopedic office tomorrow for follow-up appointment early to mid next week. This would give adequate time before your trip. Incidental note on your CT scan was of a 2.5 cm cyst on your right thyroid with recommendation for follow-up ultrasound in the near future to better evaluate and see if benign. Forms: PCP List Discharge Date/Time: 06/10/23 17:48
[2023-06-10] MEDS: KETOROLAC 30 MG/ML VIAL IM STA (15:16)
[2023-06-10] MEDS: ACETAMINOPHEN 500 MG TABLET PO STA (15:16)
--- NOTE | 2023-06-10 15:50 | XRAY Report ---
PROCEDURE: Wrist 3+V RT INDICATIONS: fall with wrist pain TECHNIQUE: 3 views of the wrist were acquired. COMPARISON: None. FINDINGS: Bones: There appears to be mildly displaced fracture of the distal radius involving the ulnar aspect with cortical disruption. No suspicious bony lesions. Soft tissues: No suspicious soft tissue calcifications or masses. IMPRESSION: Likely mildly displaced fracture of the distal radius. Reviewed by: Seamus Landis MD on 06/10/2023 3:49 PM PDT Approved by: Seamus Landis MD on 06/10/2023 3:49 PM PDT Station ID: [id number]
--- NOTE | 2023-06-10 15:52 | CT Report ---
PROCEDURE: Head WO INDICATIONS: fall with head impact: RIVERA/neck pain TECHNIQUE: Noncontrast 4.5 mm thick angled axial sections acquired from the foramen magnum to the vertex. For r adiation dose reduction, the following was used: automated exposure control, adjustment of mA and/or kV according to patient size. COMPARISON: None. FINDINGS: Image quality: Excellent. CSF spaces: Basal cisterns are patent. No extra-axial fluid collections. Ventricles are normal in size and shape. Brain: No midline shift. No intracranial masses or hemorrhage. Pham-white matter interface is norm al. Skull and face: Small frontal scalp hematoma without underlying fracture. Calvarium and visualized fa cial bones are intact, without suspicious lesions. Sinuses: Visualized sinuses and mastoids are clear. IMPRESSION: No acute intracranial pathology. Reviewed by: Seamus Landis MD on 06/10/2023 3:50 PM PDT Approved by: Seamus Landis MD on 06/10/2023 3:50 PM PDT Station ID: [id number]
--- NOTE | 2023-06-10 15:54 | CT Report ---
PROCEDURE: Cervical Spine WO INDICATIONS: fall with head impact: RIVERA and neck pain TECHNIQUE: Noncontrast 3 mm thick sections acquired from the skull base to the T4 level. Sagittal and coronal r eformats were then constructed. For radiation dose reduction, the following was used: automated exp osure control, adjustment of mA and/or kV according to patient size. COMPARISON: None. FINDINGS: Image quality: Excellent. Bones: No fractures or dislocations. Mild degenerative changes of the cervical spine. Visualized cronin perior ribs are intact. Soft tissues: Prevertebral soft tissues are normal in thickness. No paravertebral hematomas. No ap ical pneumothoraces. Right thyroid nodule measuring 2.4 cm. IMPRESSION: 1.No acute, displaced fracture or traumatic subluxation. 2.Right thyroid lobe nodule measuring 2.4 cm, recommend nonurgent thyroid ultrasound for further eval uation if not previously Reviewed by: Seamus Landis MD on 06/10/2023 3:53 PM PDT Approved by: Seamus Landis MD on 06/10/2023 3:53 PM PDT Station ID: [id number]
[2023-06-10] MEDS ORDERED: BACITRACIN ZINC OINT 1 PACKET TOP STA (17:09)
[2023-06-10 17:50] VITALS: BP 159/82; O2SAT 97
== END 2023-06-10 17:48 | disposition home or self-care (01) ==
LOC: EDUNIT# → ED 13:59
DX: S52.501A Unspecified fracture of the lower end of right radius, initial encounter for closed fracture (principal); S01.01XA Laceration without foreign body of scalp, initial encounter; S16.1XXA Strain of muscle, fascia and tendon at neck level, initial encounter; W01.0XXA Fall on same level from slipping, tripping and stumbling without subsequent striking against object, initial encounter; Y92.219 Unspecified school as the place of occurrence of the external cause; Y99.0 Civilian activity done for income or pay; E04.1 Nontoxic single thyroid nodule; I10 Essential (primary) hypertension; J44.9 Chronic obstructive pulmonary disease, unspecified; Z79.899 Other long term (current) drug therapy; Z91.040 Latex allergy status
CPT/HCPCS: 1040M; 29125; 99284

== ENCOUNTER 2023-06-18 14:33 | Outpatient (CLI) | payer OTHER, MEDICARE ==
--- NOTE | 2023-06-18 16:35 | XRAY Report ---
PROCEDURE: Knee 3V LT INDICATIONS: CONTUSION OF LEFT KNEE TECHNIQUE: 3 views of the knee were acquired. COMPARISON: None. FINDINGS: Bones: No acute fractures or dislocations. No suspicious bony lesions. Small (marginal osteophyte s most prominent at the patellofemoral compartment Soft tissues: No knee joint effusion. No suspicious soft tissue calcifications or masses. IMPRESSION: No acute osseous abnormality. If symptoms persist or there is continued clinical concern, further daylin luation with MRI or CT may be helpful. Reviewed by: Donta Oleary MD on 06/18/2023 4:33 PM PDT Approved by: Donta Oleary MD on 06/18/2023 4:33 PM PDT Station ID: [id number]
== END 2023-06-18 23:59 | disposition home or self-care (01) ==
LOC: DI.N 14:33
PROVIDERS: ATTEND Physician Assistant Medical
DX: S80.02XA Contusion of left knee, initial encounter (principal)

== ENCOUNTER 2023-07-07 09:25 | Outpatient (CLI) | payer OTHER ==
--- NOTE | 2023-07-07 13:42 | XRAY Report ---
PROCEDURE: Wrist 3+V RT INDICATIONS: PAININ RIGHT WRIST TECHNIQUE: 3 views of the wrist were acquired. COMPARISON: X-ray wrist 06/10/2023 FINDINGS: Bones: Interval sclerosis and stable alignment of healing distal radial fracture. Soft tissues: No suspicious soft tissue calcifications or masses. IMPRESSION: Stable alignment and healing of distal radial fracture. Reviewed by: Tracee Rajput MD on 07/07/2023 1:41 PM PDT Approved by: Tracee Rajput MD on 07/07/2023 1:41 PM PDT Station ID: [id number]
== END 2023-07-07 09:26 | disposition home or self-care (01) ==
LOC: DI 09:25
PROVIDERS: ATTEND Orthopaedic Surgery
DX: S52.501D Unspecified fracture of the lower end of right radius, subsequent encounter for closed fracture with routine healing (principal)

== ENCOUNTER 2023-07-15 15:55 | Outpatient (CLI) | payer MEDICARE ==
--- NOTE | 2023-07-15 18:29 | Ultrasound Report ---
PROCEDURE: Soft Tissue Head or Neck INDICATIONS: THYROID NODULE TECHNIQUE: Real-time scanning was performed of the thyroid gland, with image documentation. COMPARISON: CT cervical spine 06/10/2023 FINDINGS: Right: Thyroid lobe measures 4.5 x 1.9 x 2.1 cm. Left: Thyroid lobe measures 4.0 x 1.1 x 1.2 cm Isthmus: 0.5 cm thick. Echotexture: Homogeneous. Nodule number: One Location: Right mid Size: 3.2 x 1.9 x 2.5 cm. Composition: Soft. Echogenicity: Hypoechoic. Shape: wider than tall (0 points). Margins: Smooth (0 points). Echogenic foci: None (0 points). Total points: 4 ACR TI-RADS category: 4 IMPRESSION: Category 4 nodule meeting size criteria for FNA. ACR TI-RADS definitions and recommendations: TI-RADS 1 (benign): 0 points. FNA not needed. TI-RADS 2 (not suspicious): 2 points. FNA not needed. TI-RADS 3 (mildly suspicious): 3 points. "FNA if 2.5 cm or larger, follow up if 1.5 cm or larger (at 1, 3, and 5 years). TI-RADS 4 (moderately suspicious): 4-6 points. "FNA if 1.5 cm or larger, follow up if 1 cm or larger (at 1, 2, 3, and 5 years). TI-RADS 5 (highly suspicious): 7 points or more. "FNA if 1 cm or larger, follow up if 0.5 cm or larger (every year for 5 years). Reviewed by: Tracee Rajput MD on 07/15/2023 6:28 PM PDT Approved by: Tracee aRjput MD on 07/15/2023 6:28 PM PDT Station ID: [id number]
--- NOTE | 2023-07-16 10:49 | Ultrasound Report ---
PROCEDURE: Carotid Doppler Complete INDICATIONS: CAROTID STENOSIS TECHNIQUE: Color and pulse Doppler interrogation was performed of both carotid systems, with image documentation and velocity measurements. COMPARISON: None. FINDINGS: Right side: Brachial blood pressure: 146 or 83 mm Hg. Common carotid artery peak systolic velocity: 77 cm/sec. Internal carotid artery peak systolic velocity: 80 cm/sec. Internal carotid artery end diastolic velocity: 34 cm/sec. External carotid artery peak systolic velocity: 96 cm/sec. ICA/CCA peak systolic ratio: 1.0 . Pham scale imaging description: Moderate calcified sessile and minimally polypoid plaque at the raya tid bulb and internal carotid artery origin without subjective luminal stenosis. ICA waveforms are no rmal. Percent internal carotid artery stenosis: Less than 50%. Vertebral artery: Flow direction is antegrade. Left side: Brachial blood pressure: 139/76 mm Hg. Common carotid artery peak systolic velocity: 75 cm/sec. Internal carotid artery peak systolic velocity: 47 cm/sec. Internal carotid artery end diastolic velocity: 38 cm/sec. External carotid artery peak systolic velocity: 88 cm/sec. ICA/CCA peak systolic ratio: 1.5 . Pham scale imaging description: Mild intimal medial thickening and mild circumferential plaque in th e carotid bulb. No significant subjective luminal stenosis. IC waveforms are within normal limits. Percent internal carotid artery stenosis: Less than 50%. Vertebral artery: Flow direction is antegrade. IMPRESSION: 1. In the right internal carotid artery, there is less than 50% based on peak systolic velocity crite tomas. 2. In the left internal carotid artery, there is less than 50% based on peak systolic velocity criter ia. 3. Antegrade blood flow within the right vertebral artery. 4. Antegrade blood flow within the left vertebral artery. The estimate of stenosis included in the report of the imaging study was calculated using the [facility]-end orsed standards of carotid artery stenosis. Reviewed by: Debra Moore MD on 07/16/2023 10:48 AM PDT Approved by: Debra Moore MD on 07/16/2023 10:48 AM PDT Station ID: [id number]
== END 2023-07-15 15:56 | disposition home or self-care (01) ==
LOC: DI 15:55
PROVIDERS: ATTEND Physician Assistant Medical
DX: E04.1 Nontoxic single thyroid nodule (principal); I65.29 Occlusion and stenosis of unspecified carotid artery
CPT/HCPCS: 93880

== ENCOUNTER 2023-10-08 10:02 | Outpatient (CLI) | payer OTHER ==
--- NOTE | 2023-10-08 13:16 | XRAY Report ---
PROCEDURE: Wrist 3+V RT INDICATIONS: COLLES FX OF RIGHT RADIUS TECHNIQUE: 3 views of the wrist were acquired. COMPARISON: 07/07/2023. FINDINGS: Bones: There is a healed distal right radius fracture present. I see no evidence for new fracture or dislocation. No significant degenerative changes are seen. Soft tissues appear within normal limits. IMPRESSION: 1. No evidence for acute osseous abnormality involving the patient's right wrist. 2. Healed distal right radial fracture. Reviewed by: Earl Shook MD on 10/08/2023 1:15 PM PDT Approved by: Earl Shook MD on 10/08/2023 1:15 PM PDT Station ID: [id number]
== END 2023-10-08 10:03 | disposition home or self-care (01) ==
LOC: DI 10:02
PROVIDERS: ATTEND Orthopaedic Surgery
DX: S52.531D Colles' fracture of right radius, subsequent encounter for closed fracture with routine healing (principal)